=== PATIENT | female | born 1945 | race Caucasian/White ===

== ENCOUNTER → 2021-11-25 | Day surgery (SDC) | payer MEDICARE ==
[~2021-11-25] VITALS: Ht 162.6 cm; Wt 95.2 kg
[~2021-11-25] MED LIST: BIOTIN10000 MCG PO; CETIRIZINE HCL10 MG PO; HCTZ25 MG PO; PANTOPRAZOLE SO40 MG PO; PRINIVIL10 MG PO; SINGULAIR10 MG PO; SYNTHROID100 MCG PO; VITAMIN D3125 MCG PO
== END | disposition home or self-care (01) ==
LOC: FAS 07:30
DX: D12.0 Benign neoplasm of cecum (principal); K57.30 Diverticulosis of large intestine without perforation or abscess without bleeding; K58.0 Irritable bowel syndrome with diarrhea; K92.1 Melena; K21.9 Gastro-esophageal reflux disease without esophagitis; I10 Essential (primary) hypertension; G47.30 Sleep apnea, unspecified; E03.9 Hypothyroidism, unspecified; Z98.84 Bariatric surgery status; Z91.030 Bee allergy status; Z88.0 Allergy status to penicillin; Z79.82 Long term (current) use of aspirin; Z79.899 Other long term (current) drug therapy; Z80.0 Family history of malignant neoplasm of digestive organs
CPT/HCPCS: J1610; J2250; J2704; J7120